=== PATIENT | female | born 1995 | race African-American/Black ===

== ENCOUNTER 2024-03-22 03:32 | Observation (INO) | payer OTHER ==
[2024-03-22 03:39] VITALS: TEMP 98.2; BMI 28.5
[2024-03-22] MEDS ORDERED: LABETALOL HCL 20 MG/4 ML VIAL ONE (04:07)
[2024-03-22] MEDS: SODIUM CHLORIDE 0.9% 500 ML INFUS.BAG IV ONE ×2 (04:26→11:56)
[2024-03-22] MEDS: MAGNESIUM SULF 50% (8.12 MEQ/2 ML-1 GM VIAL) IVPB ONE (04:26)
[2024-03-22] MEDS: LABETALOL HCL 5 MG/1 ML (100MG/20 ML VIAL) IVPUSH ONE (04:26)
[2024-03-22 04:31] LABS: HEMATOCRIT 42.4 % (32.4-45.2); HEMOGLOBIN 14.8 GM/dL (10.7-15.3); MCH 32.1 pg (25.7-33.7); MEAN CELL VOLUME 91.7 fl (80-96); MEAN PLT VOLUME 7.2 fl (7.5-11.1); PLATELET COUNT 307 10^3/uL (134-434); RBC 4.62 M/mm3 (3.60-5.2); RDW 13.6 % (11.6-15.6); WHITE BLOOD COUNT 8.2 K/mm3 (4.0-10.0)
[2024-03-22 04:48] LABS: CHLORIDE 107 mmol/L (98-107); SODIUM 140 mmol/L (136-145)
[2024-03-22 04:50] LABS: CALCIUM 9.3 mg/dL (8.5-10.1); MAGNESIUM 1.7 mg/dL (1.8-2.4)
[2024-03-22 04:51] LABS: ALBUMIN 3.8 g/dl (3.4-5.0); BLOOD UREA NITROGEN 15.5 mg/dL (7-18); CO2 22 mmol/L (21-32); GLUCOSE,RANDOM 127 mg/dL (74-106)
[2024-03-22 04:54] LABS: CREATININE 0.8 mg/dL (0.55-1.3); SGOT/AST 18 U/L (15-37); SGPT/ALT 27 U/L (13-61)
[2024-03-22 04:56] LABS: BILIRUBIN,TOTAL 0.4 mg/dL (0.2-1); INR 0.9 (0.83-1.09); PROTHROMBIN TIME (PATIENT) 10.4 SEC (9.7-13.0); TOT PROT 7.8 g/dl (6.4-8.2)
[2024-03-22 04:57] LABS: ALK PHOS 94 U/L (45-117)
[2024-03-22 04:58] LABS: ACTIVATED PTT 30.5 SECONDS (25.2-36.5); N-TERMINAL BNP 77.4 pg/ml (5-125)
[2024-03-22 05:07] LABS: ANION GAP 11 mmol/L (4-13); POTASSIUM 2.7 mmol/L (3.5-5.1)
[2024-03-22] MEDS ORDERED: ACETAMINOPHEN INJECTION 100 ML IVPB ONE (05:08)
[2024-03-22] MEDS ORDERED: POTASSIUM CHLORIDE ORAL LIQUID 20 MEQ/15 ML ONE (05:09)
[2024-03-22] MEDS ORDERED: MAGNESIUM 1GM/D5W - 1 GM/100 ML IVPB IVPB ONE (05:10)
[2024-03-22] MEDS: POTASSIUM CHLORIDE ORAL LIQUID 20 MEQ/15 ML PO ONE (05:17)
[2024-03-22] MEDS: ACETAMINOPHEN 1000 MG/100 ML BAG IVPB ONE (05:17)
[2024-03-22 05:29] LABS: PH,URINE 6.5 (5.0-8.0); URINE APPEARANCE CLEAR; URINE BILIRUBIN NEGATIVE (NEGATIVE); URINE COLOR YELLOW; URINE GLUCOSE (UA) NEGATIVE (NEGATIVE); URINE KETONE NEGATIVE (NEGATIVE); URINE LEUK ESTERASE NEGATIVE (NEGATIVE); URINE NITRITE NEGATIVE (NEGATIVE); URINE PROTEIN NEGATIVE (NEGATIVE); URINE UROBILINOGEN 0.2 mg/dL (0.2-1.0)
[2024-03-22] MEDS ORDERED: KCL 10 MEQ IVPB 10 MEQ/100 ML INFUS.BAG IVPB ONE ×3 (06:29→10:59)
[2024-03-22] MEDS: KCL 10 MEQ IVPB 10 MEQ/100 ML INFUS.BAG IVPB SCH (06:42)
[2024-03-22] MEDS ORDERED: ASPIRIN 81 MG CHEWABLE TABLETS ONE (06:54)
[2024-03-22] MEDS: ASPIRIN 81 MG CHEWABLE TABLETS PO SCH (06:57)
[2024-03-22] MEDS: ASPIRIN 81 MG CHEWABLE TABLETS PO ONE (07:02)
[2024-03-22] MEDS: POTASSIUM CHLORIDE TABS 20 MEQ TABLET.ER (FP) PO ONE (07:07)
[2024-03-22 09:15] LABS: ANISOCYTOSIS 0; HELMET CELLS 0; HOWELL-JOLLY BODIES 0; MACROCYTOSIS 0; OVALOCYTE 0; ROULEAU 0; SICKELED CELLS 0; TARGET CELLS 0; TEAR DROP CELLS 0; TOXIC GRANULATION 0
[2024-03-22] MEDS ORDERED: ENOXAPARIN NA (PORCINE) 40 MG/0.4 ML DISP.SYRIN SQ ONE (09:43)
[2024-03-22] MEDS: ENOXAPARIN NA (PORCINE) 40 MG/0.4 ML DISP.SYRIN SQ SCH (10:00)
[2024-03-22 10:06] LABS: POTASSIUM 4.7 mmol/L (3.5-5.1)
[2024-03-22 10:08] LABS: BLOOD UREA NITROGEN 9.9 mg/dL (7-18); MAGNESIUM 2.1 mg/dL (1.8-2.4)
[2024-03-22 10:12] LABS: CREATININE 0.7 mg/dL (0.55-1.3)
[2024-03-22] MEDS: SODIUM CHLORIDE 1,000 ML IV SCH (11:55)
[2024-03-22 18:44] VITALS: RESP 16
[2024-03-22 18:47] VITALS: BP 150/100; PULSE 74
== END 2024-03-22 15:15 | disposition home or self-care (01) ==
LOC: JER 03:32 → JERBED 05:39
PROVIDERS: ADMIT Internal Medicine; ATTEND Internal Medicine
PROC: 3E033NZ Introduction of Analgesics, Hypnotics, Sedatives into Peripheral Vein, Percutaneous Approach (ICD-10-PCS; principal; 2024-03-22)
PROC: 3E023GC Introduction of Other Therapeutic Substance into Muscle, Percutaneous Approach (ICD-10-PCS; 2024-03-22)
PROC: 3E0337Z Introduction of Electrolytic and Water Balance Substance into Peripheral Vein, Percutaneous Approach (ICD-10-PCS; 2024-03-22)
DX: R07.89 Other chest pain (principal); E87.6 Hypokalemia; E83.42 Hypomagnesemia; O14.95 Unspecified pre-eclampsia, complicating the puerperium; R00.0 Tachycardia, unspecified; F41.9 Anxiety disorder, unspecified; I95.9 Hypotension, unspecified; R60.0 Localized edema
CPT/HCPCS: 0241U-QW; 36415; 71045-TC-FY; 80048; 80053; 81003; 82550; 83735; 83880; 84439; 84443; 84484; 85025; 85379; 85610; 85730; 86850; 86900; 86901; 87086; 93005; 93010; 96361; 96365; 96367; 96372; 96375; 99285-25; G0378; J0131